=== PATIENT | male | born 1965 | race Caucasian/White ===

== ENCOUNTER → 2016-07-09 | Outpatient (CLI) | payer BC ==
[~2016-07-09] MED LIST: CRESTOR20 MG PO; Colace PO; Dilaudid PO; Milk Of Magnesia,MOM PO; Motrin PO; Silvadene,SSD,Therma TP
== END | disposition home or self-care (01) ==
LOC: CDC 15:12
DX: R00.1 Bradycardia, unspecified (principal); I45.9 Conduction disorder, unspecified; M77.02 Medial epicondylitis, left elbow; M25.522 Pain in left elbow
CPT/HCPCS: 93000